=== PATIENT | male | born 1980 | race Two or more races ===

== ENCOUNTER 2022-12-19 06:34 | Emergency (ER) | payer OTHER ==
[~2022-12-19] VITALS: Ht 170.2 cm; Wt 108.9 kg
[2022-12-19] MEDS ORDERED: MAG HYDROX/AL HYDROX/SIMETH 30 ML UDC ONE (06:53)
--- NOTE | 2022-12-19 06:55 | NUR ---
[id number] FROM HOME FOR UPPER QUAD PAIN STARTED 3AM TODAY. PT IN BED, NO ACUTE RESPI DISTRESS NOTED AT THIS TIME. AWAITING FOR MD ORDERS.
[2022-12-19] MEDS ORDERED: MAG HYDROX/AL HYDROX/SIMETH 30 ML UDC PO ONE (07:00)
[2022-12-19] MEDS ORDERED: LIDOCAINE VISCOUS 2% UD 15 ML UDC MM ONE (07:00)
[2022-12-19] MEDS ORDERED: FAMOTIDINE/PF INJ 20 MG/2 ML VIAL IV ONE ×2 (07:00→07:27)
[2022-12-19 07:06] LABS: BASOPHILS % (AUTO) 0.4 % (0.0-2.0); EOSINOPHILS % (AUTO) 2.1 % (0.0-6.0); HEMATOCRIT 49 % (39-51); HEMOGLOBIN 16.4 g/dL (13.5-17.5); LYMPHOCYTES # (AUTO) 2.3 K/uL (0.8-4.8); MEAN CORPUSCULAR HGB CONC 33 g/dl (31.0-36.0); MEAN CORPUSCULAR VOLUME 91 fL (80-96); MONOCYTES # (AUTO) 0.9 K/uL (0.1-1.30); MONOCYTES % (AUTO) 8.9 % (2.0-12.0); NEUTROPHILS % (AUTO) 66.6 % (43.0-81.0); PLATELET COUNT (AUTO) 275 K/uL (150-450); RED BLOOD CELL COUNT(AUTO) 5.37 MIL/uL (4.5-6.0); WHITE BLOOD COUNT (AUTO) 10.5 K/uL (4.3-11.0)
[2022-12-19 07:20] LABS: ALBUMIN 3.3 g/dL (3.4-5.0); BILIRUBIN,DIRECT 0.1 mg/dL (0.0-0.2); BILIRUBIN,TOTAL 0.6 mg/dL (0.2-1.0); CALCIUM, SERUM 9.1 mg/dL (8.5-10.1); CREATININE 1.2 mg/dL (0.6-1.3)
--- NOTE | 2022-12-19 07:20 | NUR ---
Partient AOx4 able to express his concerns. Patient states feeling nauseous. Discussed plan of care, patient vebalized agreement.
[2022-12-19] MEDS ORDERED: ONDANSETRON HCL/PF 4 MG/2 ML VIAL ONE (07:26)
[2022-12-19] MEDS ORDERED: LIDOCAINE VISCOUS 2% UD 15 ML UDC ONE (07:27)
[2022-12-19] MEDS ORDERED: IV NS 0.9% 1,000 ML IV ONE (07:30)
[2022-12-19] MEDS ORDERED: ONDANSETRON HCL/PF 4 MG/2 ML VIAL IV ONE (07:30)
--- NOTE | 2022-12-19 07:40 | NUR ---
Administered meds as prescribed.
[2022-12-19] MEDS ORDERED: MORPHINE SULFATE INJ 2 MG/ML DISP.SYRIN IV ONE (08:00)
[2022-12-19] MEDS ORDERED: MORPHINE SULFATE INJ 4 MG/ML DISP.SYRIN ONE (08:13)
--- NOTE | 2022-12-19 09:20 | NUR ---
Discussed plan of care with patient, verbalized agreement.
--- NOTE | 2022-12-19 09:25 | NUR ---
MRSA swab sent to lab
--- NOTE | 2022-12-19 09:25 | NUR ---
Covid swab sent to lab
[2022-12-19 09:31] LABS: BILIRUBIN,URINE NEGATIVE (NEGATIVE); COLOR,URINE YELLOW (YELLOW); LEUKOCYTE ESTERASE ,URINE NEGATIVE (NEGATIVE); NITRITE, URINE NEGATIVE (NEGATIVE); PH,URINE 6.5 (5.0-8.0); PROTEIN,URINE 3+ mg/dl (NEGATIVE); UGLUCOSE TRACE mg/dL (NEGATIVE); UROBILINOGEN,URINE 0.2 EU/dL (0.2)
[2022-12-19 09:50] LABS: BACTERIA,URINE None seen /HPF (None Seen); SQUAMOUS EPITHELIAL CELL,UR None Seen /HPF (None Seen); WBC,URINE NONE SEEN /HPF (0-3)
[2022-12-19] MEDS ORDERED: PIPERACILLIN /TAZOBACTAM 3.375 G in IV D5W 50 ML IV ONE (10:00)
[2022-12-19] MEDS ORDERED: PIPERACILLIN /TAZOBACTAM 3.375 G VIAL IV ONE (10:24)
--- NOTE | 2022-12-19 10:46 | NUR ---
LAUREN REGAL [phone]
--- NOTE | 2022-12-19 13:21 | NUR ---
PT ACCEPTED TO [facility] ROOM [address] PLEASE CALL [phone] FOR RN REPORT. [facility] WILL TRANSPORT ETA 1700 .
[2022-12-19 17:35] VITALS: BP 128/74
--- NOTE | 2022-12-19 18:43 | NUR ---
[facility] RO[facility] PLEASE CALL [phone] FOR RN REPORT. Called, report given to Prosper VALENZUELA.
== END 2022-12-19 17:35 | disposition hospice, inpatient (51) ==
LOC: ER 06:36 → EDBD 06:36 → ER 17:35
DX: K81.0 Acute cholecystitis (principal); K81.1 Chronic cholecystitis; I10 Essential (primary) hypertension; K21.9 Gastro-esophageal reflux disease without esophagitis; Z20.822 Contact with and (suspected) exposure to COVID-19
CPT/HCPCS: 99285; 96365; 96375; 76705; 71045; 96361; 87426; 93005; 85025; 80048; 87040 ×2; 83690; 80076; 81001; 36415; 87081; J2270; J3490; J2405; J2543; J7030; C9803; J7060